=== PATIENT | female | born 1940 | race Caucasian/White ===

== ENCOUNTER 2016-05-30 11:02 | Outpatient (CLI) | payer MEDICARE | END 2016-05-30 11:03 | disposition home or self-care (01) | DX: Z12.11 Encounter for screening for malignant neoplasm of colon (principal) ==

== ENCOUNTER 2016-05-30 11:13 | Outpatient (CLI) | payer MEDICARE | END 2016-05-30 11:14 | disposition home or self-care (01) | DX: R05 Cough (principal); Z12.11 Encounter for screening for malignant neoplasm of colon ==

== ENCOUNTER 2016-09-28 11:50 | Outpatient (CLI) | payer MEDICARE ==
--- NOTE | 2016-09-28 16:35 | XRAY Report ---
TWO VIEW LEFT HAND: 09/28/2016 CLINICAL INDICATION: Finger pain. FINDINGS: AP and lateral views of the left hand demonstrate interphalangeal joint osteoarthritis. Th ere is no evidence of acute fracture or dislocation. No radiopaque foreign body is seen in the soft t issues. IMPRESSION: INTERPHALANGEAL JOINT OSTEOARTHRITIS. NO EVIDENCE OF FRACTURE. JOB #: [id number] EXT JOB #:[id number]
== END 2016-09-28 11:51 | disposition home or self-care (01) ==
LOC: DI.S 11:50
PROVIDERS: ATTEND Family Medicine
DX: M19.042 Primary osteoarthritis, left hand (principal)

== ENCOUNTER 2017-10-13 16:53 | Inpatient (IN) | payer MEDICARE ==
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
[2017-10-13 17:50] LABS: BASOPHILS % (AUTO) 0.5 %; EOSINOPHILS # (AUTO) 0.1 10^3/uL (0.0-0.7); EOSINOPHILS % (AUTO) 0.7 %; HGB - HEMOGLOBIN 13.1 g/dL (12.0-16.0); LYMPHOCYTES # (AUTO) 2.8 10^3/uL (1.5-3.5); MEAN CORPUSCULAR HGB CONC 32.6 g/dL (32.0-36.0); MEAN PLATELET VOLUME 10.4 fL (7.9-10.8); MONOCYTES # (AUTO) 0.5 10^3/uL (0.0-1.0); MONOCYTES % (AUTO) 6.4 %; NEUTROPHILS # (AUTO) 4.3 10^3/uL (1.5-6.6); NEUTROPHILS % (AUTO) 55.4 %; PLT - PLATELET COUNT 244 10^3/uL (130-450); RED BLOOD COUNT 4.36 10^6/uL (4.20-5.40); RED CELL DISTRIBUTION WIDTH 13.6 % (12.0-15.0); WHITE BLOOD COUNT 7.7 x10^3/uL (4.8-10.8)
--- NOTE | 2017-10-13 18:02 | XRAY Report ---
EXAM: CHEST RADIOGRAPHY EXAM DATE: 10/13/2017 05:32 PM. CLINICAL HISTORY: Chest pain. COMPARISON: 05/30/2016 chest x-ray. TECHNIQUE: 1 view. FINDINGS: Lungs/Pleura: No focal opacities evident. No pleural effusion. No pneumothorax. Mediastinum: Within exam limitations, the cardiomediastinal contour is normal. Other: None. IMPRESSION: Normal single view chest. [facility] Referring Provider Line: [phone] SITE ID: [id number]
--- NOTE | 2017-10-13 18:02 | XRAY Preliminary Report ---
Exam: XR CHEST 1 VIEW X-RAY IMPRESSION: Normal single view chest. [facility] SITE ID: [id number]
[2017-10-13 18:14] LABS: ALBUMIN/GLOBULIN RATIO 1.4 (1.0-2.2); BILIRUBIN,TOTAL 0.2 mg/dL (0.2-1.0); CALCIUM 9.5 mg/dL (8.5-10.3); CREATININE 0.7 mg/dL (0.4-1.0); PLATELET ESTIMATE, MANUAL NORMAL (130-450,000) (NORMAL); PLATELET MORPHOLOGY 1+ LARGE PLATELETS (NORMAL); RBC MORPHOLOGY (MULTIPLE) NORMAL APPEARANCE (NORMAL); TOTAL PROTEIN 6.8 g/dL (6.7-8.2)
[2017-10-13] MEDS ORDERED: IOPAMIDOL-300 100 ML VIAL IVP ONE (18:21)
[2017-10-13] MEDS ORDERED: IOPAMIDOL-300 100 ML VIAL ONE (18:29)
--- NOTE | 2017-10-13 19:04 | CT Preliminary Report ---
Exam: CT HEAD W/O IMPRESSION: Mild chronic senescent change. No acute intracranial abnormality seen. [facility] SITE ID: [id number]
--- NOTE | 2017-10-13 19:04 | CT Report ---
EXAM: CT HEAD EXAM DATE: 10/13/2017 06:51 PM. CLINICAL HISTORY: Ataxia. COMPARISON: None. TECHNIQUE: Multiaxial CT images were obtained from the foramen magnum to the vertex. Reformats: Coron al. IV contrast: None. In accordance with CT protocol optimization, one or more of the following dose reduction techniques w ere utilized for this exam: automated exposure control, adjustment of mA and/or KV based on patient s ize, or use of iterative reconstructive technique. FINDINGS: Parenchyma: No intraparenchymal hemorrhage. No evidence of mass, midline shift, or CT findings of inf arction. Amin-white differentiation is distinct. Mild periventricular chronic microangiopathy. Extraaxial Spaces: Normal for age. No subdural or epidural collections identified. Ventricles: Normal in size and position. Sinuses and Orbits: Imaged paranasal sinuses, orbits, and mastoids show no significant abnormality. Bones: No evidence of fracture or calvarial defect. IMPRESSION: Mild chronic senescent change. No acute intracranial abnormality seen. [facility] Referring Provider Line: [phone] SITE ID: [id number]
--- NOTE | 2017-10-13 19:21 | CT Preliminary Report ---
Exam: CT HEAD ANGIO Impression: Postcontrast head CT: No abnormal parenchymal enhancement. No masses. Head CTA: High-grade stenosis in the mid-distal right PICA, best demonstrated on series 5 image 57, clinical co rrelation with right cerebellar symptoms suggested. Finding would be better evaluated by perfusion im aging. SITE ID: [id number]
--- NOTE | 2017-10-13 19:27 | CT Preliminary Report ---
Exam: CT NECK ANGIO Impression: Allowing for motion and beam hardening artifacts, no evident extracranial arterial stenosis or dissec tion. The vertebral arteries, particularly the right are irregular, presumed atherosclerotic. SITE ID: [id number]
--- NOTE | 2017-10-13 19:48 | CT Report ---
EXAM: CTA HEAD COMPARISON: CT head, 10/15/2017. CLINICAL HISTORY: Ataxia. TECHNIQUE: Axial CT images were obtained through the head during arterial phase after intravenous Isovue-[address] is performed. 3 dimensional MIP reconstructions are created from axial data. Stenosis is measured by NASCET type criteria. In accordance with CT protocol optimization, one or more of the following dose reduction techniques w ere utilized for this exam: automated exposure control, adjustment of mA and/or KV based on patient s ize, or use of iterative reconstructive technique. FINDINGS: Postcontrast head CT: No abnormal parenchymal enhancement. No masses. Ventricles are mildly prominent, as before. Patchy white matter low attenuation is nonspecific, presumed to reflect small vessel angiopathy, as b efore. No lytic or blastic bone lesions are seen. Visualized orbits, paranasal sinuses and mastoids are unremarkable. CTA: Right internal carotid artery: No evident stenosis or aneurysm is identified through the terminus. There is extensive calcification to the siphon. Right M1, M2 and visualized distal segments are unremarkable. Right A1, A2 and visuali zed distal segments show no discrete hemodynamically significant stenosis, there is tapering 20-40% s tenosis. Left internal carotid artery: No evident stenosis or aneurysm is identified through the terminus. Left M1, M2 and visualized distal segments are unremarkable. Left A1, A2 and visualized distal segments are unremarkable. Posterior circulation: Intracranial vertebral arteries are right-sided dominant. Left PICA origin is well visualized. There is flow in the distal left PICA. Right PICA origin is well visualized. There is apparent occlusion or near occlusion in the mid distal right PICA (5, 57), would be better evaluated by perfusion imaging. There is apparent distal reconstitution. Basilar artery is relatively unremarkable to its terminus. The bilateral P1, P2 and visualized distal segments are unremarkable. IMPRESSION: Postcontrast head CT: No abnormal parenchymal enhancement. No masses. Head CTA: High-grade stenosis at the mid-distal right PICA, best demonstrated on series 5 image 57, clinical co rrelation with right cerebellar symptoms suggested. Finding would be better evaluated by perfusion im aging. Referring Provider Line: [phone] SITE ID: [id number]
--- NOTE | 2017-10-13 19:48 | CT Report ---
EXAM: CTA NECK COMPARISON: CTA head, 10/13/2017. CLINICAL HISTORY: Ataxia. TECHNIQUE: Axial CT images were obtained through the neck during arterial phase after intravenous 100 mL Isovue 300iodinated contrast. 3 dimensional MIP reconstructions are created from axial data. Stenosis is measured by NASCET type criteria. In accordance with CT protocol optimization, one or more of the following dose reduction techniques w ere utilized for this exam: automated exposure control, adjustment of mA and/or KV based on patient s ize, or use of iterative reconstructive technique. FINDINGS: Visualized right upper chest shows no pulmonary nodules or masses. No pneumothorax. Visualized left upper chest shows no pulmonary nodules or masses. No pneumothorax. There is left apic al scarring. Visualized upper mediastinum is unremarkable. No cervical adenopathy or masses are appreciated. There is multilevel cervical spondylosis, without high-grade bony canal stenosis identified. Facet ar thropathy is particularly notable at the left C3-C4. Temporomandibular joints are normally located. Zygomatic arches are intact. Mastoids are clear. No mi ddle ear effusions. No retropharyngeal fluid. Arterial structures: Right carotid artery: Right common carotid artery originates normally from the brachiocephalic, allowing for motion, it santosh ws no evident stenosis or dissection to the bifurcation. Right internal carotid artery shows no evide nt stenosis or dissection to the skull base. Left carotid artery: Left common carotid artery originates normally from the aortic arch, it shows no evident stenosis or dissection to the bifurcation. Left internal carotid artery shows no evident stenosis or dissection t o the skull base. Posterior circulation: Right vertebral artery originates normally from the right subclavian artery, it is irregular over its length, no definite focal stenosis or dissection is identified. Left vertebral artery originates normally from the left subclavian artery, it shows no definite steno sis or dissection over its length, it is nondominant. IMPRESSION: Allowing for motion and beam-hardening artifacts, no evident extracranial arterial stenosis or dissec tion. The vertebral arteries, particularly the right are irregular, presumed atherosclerotic. Referring Provider Line: [phone] SITE ID: [id number]
[2017-10-13] MEDS ORDERED: SODIUM CHLORIDE FLUSH 0.9% 10 ML SYRINGE IVP PRN (20:40)
[2017-10-13] MEDS ORDERED: TEMAZEPAM 15 MG CAPSULE PO PRN (20:40)
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
[2017-10-13] MEDS: D5.45NS W/20 MEQ KCL 1,000 ML IV SCH (22:22)
[2017-10-14] MEDS: SODIUM CHLORIDE FLUSH 0.9% 10 ML SYRINGE IVP SCH ×4 (00:14→23:44)
[2017-10-14] MEDS: D5.45NS W/20 MEQ KCL 1,000 ML IV SCH (08:16)
[2017-10-14] MEDS ORDERED: ASPIRIN 325 MG TABLET PO SCH (09:00)
[2017-10-14] MEDS: ASPIRIN 325 MG TABLET PO SCH (09:20)
[2017-10-14] MEDS: ATORVASTATIN 40 MG TABLET PO SCH ×2 (09:20→21:59)
[2017-10-14] MEDS: POLYETHYLENE GLYCOL 3350 17 GM PACKET PO SCH (09:21)
--- NOTE | 2017-10-14 12:55 | PROVIDER PROGRESS NOTE ---
Subjective - Prog Note Date Prog Note Date: 10/14/17 - Subjective Pt reports feeling: Improved Subjective: pt report she feel better, and balance also is better, and ataxia is better. Pt state " I usually can treat myself by my imagination." Pt denies other complaints. pt did report she had hx of Crohn's disease and osteoarthritis. she state all these problems are good controlled, and treated by herself. Current Medications - Current Medications Current Medications: Active Medications Acetaminophen/Hydrocodone Bitart ([place] 5/325) 1 tab PO Q4HR PRN PRN Reason: Pain 5 to 7 Aspirin (Garry) 325 mg PO DAILYWM [facility] Last Admin: 10/14/17 09:20 Dose: 325 mg Atorvastatin Calcium (Lipitor) 80 mg PO QPM [facility] Last Admin: 10/14/17 09:20 Dose: 80 mg Potassium Chloride/Dextrose/Sod Cl (D5.45ns W/20 Meq Kcl) 1,000 mls @ 50 mls/ hr IV .Q20H [facility] Last Admin: 10/14/17 08:16 Dose: 50 mls/hr Polyethylene Glycol (Miralax) 17 gm PO DAILY [facility] Last Admin: 10/14/17 09:21 Dose: Not Given Sodium Chloride (Normal Saline Flush 0.9%) 10 ml IVP PRN PRN PRN Reason: NEEDED PER PROVIDER ORDERS Sodium Chloride (Normal Saline Flush 0.9%) 10 ml IVP 0100,0900,1700 [facility] Last Admin: 10/14/17 09:21 Dose: Not Given Temazepam (Restoril) 15 mg PO QPM PRN PRN Reason: Insomnia Objective - Vital Signs/Intake & Output Reviewed Vital Signs: Yes Vital Signs: Vital Signs x48h Temp Pulse Resp BP BP Pulse Ox 10/14/17 12:41 36.3 C L 57 L 16 155/70 H 99 10/14/17 09:01 36.6 C 66 18 123/57 L 100 10/14/17 05:25 36.9 C 61 16 146/84 H 100 Intake & Output: Intake & Output 10/11/17 10/12/17 10/13/17 10/14/17 23:59 23:59 23:59 23:59 Intake Total 200 985 Balance 200 985 - Objective General Appearance: positive: No acute distress, Alert. negative: Lethargic Eyes Bilateral: positive: Normal inspection, PERRL, No lid inflammation, Conjunctivae nml ENT: positive: ENT inspection nml, Pharynx nml, No signs of dehydration. negative: Purulent nasal drainage, Pharyngeal erythema, Oral lesions Neck: positive: Nml inspection, Thyroid nml, No JVD, Trachea midline. negative : Thyromegaly, Lymphadenopathy (R), Lymphadenopathy (L), Stiff neck, Carotid bruit, Swelling/bruising, Tracheal deviation Respiratory: positive: Chest non-tender, No respiratory distress, Breath sounds nml. negative: Wheezes, Rales, Rhonchi Cardiovascular: positive: Regular rate & rhythm, No murmur, No gallop. negative : Irregularly irregular, Extrasystoles, Tachycardia, Bradycardia, JVD present, Systolic murmur, Diastolic murmur Peripheral Pulses: 2+ Radial (R), 2+ Radial (L), 2+ Dorsalis pedis (R), 2+ Dorsalis pedis (L) Abdomen: positive: Non-tender, No organomegaly, Nml bowel sounds, No distention. negative: Tenderness, Guarding, Rebound Back: positive: Nml inspection. negative: CVA tenderness (R), CVA tenderness (L ) Skin: positive: Color nml, No rash, Warm, Dry. negative: Cyanosis, Diaphoresis , Pallor Extremities: positive: Non-tender. negative: Calf tenderness, Joint swelling, Meka's sign/cords Neurologic/Psychiatric: positive: Oriented x3, Sensation nml, Mood/affect nml. negative: Weakness, Sensory loss, Facial droop, Slurred/abnml speech, Depressed mood/affect - Lab Results Fish Bones: 10/13/17 17:20 10/13/17 17:20 ABX Reporting Has patient been on IV antibiotics over the past 48 hours?: No Assessment/Plan - Problem List (1) Cerebellar stroke Impression: (1) Cerebellar stroke Conclusion/Plan: MRI will have tomorrow, will follow up. ECHO is unremarkable. add aspirin 325 mg Lipitor 80 mg order lipid panel study PT/OT The patient apparently has a stroke in her right pica region or cerebellum. She is not exhibiting any kind of dysarthria or difficulty speaking. She is severely ataxic however and will require assistance with any type of activity. We will admit the patient to a medical surgical bed on telemetry,obtain an MRI/ MRA of the patient's brain and neck, an echocardiogram, and will address any abnormalities as they are 0discovered. (2) unbalance/ataxia pt present some mild unbalance, mild ataxia issue when watch pt walk with PT continue PT/OT, will follow up recommendation for d/c plan fall precaution continue medical treatment.
[2017-10-15] MEDS: D5.45NS W/20 MEQ KCL 1,000 ML IV SCH (05:32)
[2017-10-15 06:34] LABS: BASOPHILS % (AUTO) 0.5 %; EOSINOPHILS # (AUTO) 0.1 10^3/uL (0.0-0.7); EOSINOPHILS % (AUTO) 1.4 %; LYMPHOCYTES % (AUTO) 45.8 %; MEAN CORPUSCULAR HGB CONC 33.1 g/dL (32.0-36.0); MEAN CORPUSCULAR VOLUME 90.7 fL (81.0-99.0); MEAN PLATELET VOLUME 10.3 fL (7.9-10.8); MONOCYTES # (AUTO) 0.5 10^3/uL (0.0-1.0); MONOCYTES % (AUTO) 7.7 %; NEUTROPHILS % (AUTO) 44.6 %; PLT - PLATELET COUNT 222 10^3/uL (130-450); RED BLOOD COUNT 4.32 10^6/uL (4.20-5.40); RED CELL DISTRIBUTION WIDTH 13.9 % (12.0-15.0); WHITE BLOOD COUNT 6.7 x10^3/uL (4.8-10.8)
[2017-10-15 06:46] LABS: ALBUMIN 3.5 g/dL (3.2-5.5); ALBUMIN/GLOBULIN RATIO 1.3 (1.0-2.2); BILIRUBIN,TOTAL 0.8 mg/dL (0.2-1.0); CALCIUM 9.1 mg/dL (8.5-10.3); CREATININE 0.7 mg/dL (0.4-1.0); MAGNESIUM 1.9 mg/dL (1.7-2.8); TOTAL PROTEIN 6.2 g/dL (6.7-8.2)
[2017-10-15 06:52] LABS: CHOL/HDL RATIO 3.2 (<4.4); CHOLESTEROL 192 mg/dL; HDL CHOLESTEROL 60 mg/dL; LDL CHOLESTEROL,CALCULATED 100 mg/dL; LDL/HDL RATIO 1.7 (<4.4); VLDL CHOLESTEROL 32 mg/dL
[2017-10-15 07:04] LABS: PLATELET ESTIMATE, MANUAL NORMAL (130-450,000) (NORMAL); PLATELET MORPHOLOGY RARE GIANT PLATELETS (NORMAL); RBC MORPHOLOGY (MULTIPLE) NORMAL APPEARANCE (NORMAL)
[2017-10-15] MEDS: ASPIRIN 325 MG TABLET PO SCH (08:53)
[2017-10-15] MEDS: POLYETHYLENE GLYCOL 3350 17 GM PACKET PO SCH (08:53)
[2017-10-15] MEDS: SODIUM CHLORIDE FLUSH 0.9% 10 ML SYRINGE IVP SCH ×2 (08:53→20:07)
--- NOTE | 2017-10-15 14:18 | PROVIDER PROGRESS NOTE ---
Subjective - Prog Note Date Prog Note Date: 10/15/17 - Subjective Pt reports feeling: Improved Subjective: pt report she feel good. Denies fever, chill, cough, CP, SOB. PT report pt did good job, and recommend out-pt PT/OT for pt. Today hospital did not have MRI for pt. Current Medications - Current Medications Current Medications: Active Medications Acetaminophen/Hydrocodone Bitart ([place] 5/325) 1 tab PO Q4HR PRN PRN Reason: Pain 5 to 7 Aspirin (Garry) 325 mg PO DAILYWM [facility] Last Admin: 10/15/17 08:53 Dose: 325 mg Atorvastatin Calcium (Lipitor) 80 mg PO QPM [facility] Last Admin: 10/14/17 21:59 Dose: 80 mg Polyethylene Glycol (Miralax) 17 gm PO DAILY [facility] Last Admin: 10/15/17 08:53 Dose: Not Given Sodium Chloride (Normal Saline Flush 0.9%) 10 ml IVP PRN PRN PRN Reason: NEEDED PER PROVIDER ORDERS Sodium Chloride (Normal Saline Flush 0.9%) 10 ml IVP 0100,0900,1700 [facility] Last Admin: 10/15/17 08:53 Dose: Not Given Temazepam (Restoril) 15 mg PO QPM PRN PRN Reason: Insomnia Objective - Vital Signs/Intake & Output Reviewed Vital Signs: Yes Vital Signs: Vital Signs x48h Temp Pulse Resp BP BP Pulse Ox 10/15/17 12:26 36.5 C 60 22 164/74 H 98 10/15/17 08:00 36.6 C 62 18 146/69 H 96 Intake & Output: Intake & Output 10/12/17 10/13/17 10/14/17 10/15/17 23:59 23:59 23:59 23:59 Intake Total 200 1722 1967.5 Balance 200 1722 1967.5 - Objective General Appearance: positive: No acute distress, Alert. negative: Lethargic Eyes Bilateral: positive: Normal inspection, PERRL, EOMI, No lid inflammation, Conjunctivae nml ENT: positive: ENT inspection nml, Pharynx nml, No signs of dehydration. negative: Purulent nasal drainage, Pharyngeal erythema, Oral lesions Neck: positive: Nml inspection, Thyroid nml, No JVD, Trachea midline. negative : Thyromegaly, Lymphadenopathy (R), Lymphadenopathy (L), Stiff neck, Carotid bruit, Swelling/bruising, Tracheal deviation Respiratory: positive: Chest non-tender, No respiratory distress, Breath sounds nml. negative: Wheezes, Rales, Rhonchi Cardiovascular: positive: Regular rate & rhythm, No murmur, No gallop. negative : Irregularly irregular, Extrasystoles, Tachycardia, Bradycardia, JVD present, Systolic murmur, Diastolic murmur Peripheral Pulses: 2+ Radial (R), 2+ Radial (L), 2+ Dorsalis pedis (R), 2+ Dorsalis pedis (L) Abdomen: positive: Non-tender, No organomegaly, Nml bowel sounds, No distention. negative: Tenderness, Guarding, Rebound Back: positive: Nml inspection. negative: CVA tenderness (R), CVA tenderness (L ) Skin: positive: Color nml, No rash, Warm, Dry. negative: Cyanosis, Diaphoresis , Pallor Extremities: positive: Non-tender, Full ROM, Nml appearance. negative: Calf tenderness, Joint swelling, Meka's sign/cords Neurologic/Psychiatric: positive: Oriented x3, Motor nml, Sensation nml, Mood/ affect nml. negative: Weakness, Sensory loss, Facial droop, Slurred/abnml speech, Depressed mood/affect - Lab Results Fish Bones: 10/15/17 06:02 10/15/17 06:02 Other Labs: Lab Results x24hrs 10/15/17 10/15/17 10/15/17 Range/Units 06:02 06:02 06:02 WBC 6.7 (4.8-10.8) x10^3/uL RBC 4.32 (4.20-5.40) 10^6/uL Hgb 13.0 (12.0-16.0) g/dL Hct 39.2 (37.0-47.0) % MCV 90.7 (81.0-99.0) fL MCH 30.0 (27.0-31.0) pg MCHC 33.1 (32.0-36.0) g/dL RDW 13.9 (12.0-15.0) % Plt Count 222 (130-450) 10^3/uL MPV 10.3 (7.9-10.8) fL Neut # 3.0 (1.5-6.6) 10^3/uL Lymph # 3.0 (1.5-3.5) 10^3/uL [place] # 0.5 (0.0-1.0) 10^3/uL Eos # 0.1 (0.0-0.7) 10^3/uL Baso # 0.0 (0.0-0.1) 10^3/uL Absolute Nucleated RBC 0.00 x10^3/uL Nucleated RBC % 0.0 /100WBC Manual Slide Review Indicated Platelet Estimate NORMAL (130-450,000) (NORMAL) Platelet Morphology RARE GIANT PLATELETS (NORMAL) RBC Morph Micro Appear NORMAL APPEARANCE (NORMAL) Sodium 138 (135-145) mmol/L Potassium 4.0 (3.5-5.0) mmol/L Chloride 103 (101-111) mmol/L Carbon Dioxide 27 (21-32) mmol/L Anion Gap 8.0 (6-13) BUN 16 (6-20) mg/dL Creatinine 0.7 (0.4-1.0) mg/dL Estimated GFR (MDRD) 81 L (>89) Glucose 95 (70-100) mg/dL Calcium 9.1 (8.5-10.3) mg/dL Magnesium 1.9 (1.7-2.8) mg/dL Total Bilirubin 0.8 (0.2-1.0) mg/dL AST 18 (10-42) IU/L ALT 14 (10-60) IU/L Alkaline Phosphatase 64 (42-121) IU/L Total Protein 6.2 L (6.7-8.2) g/dL Albumin 3.5 (3.2-5.5) g/dL Globulin 2.7 (2.1-4.2) g/dL Albumin/Globulin Ratio 1.3 (1.0-2.2) Triglycerides 160 H ( - 149) mg/dL Cholesterol 192 ( - 199) mg/dL LDL Cholesterol, Calc 100 ( - 129) mg/dL VLDL Cholesterol 32 mg/dL HDL Cholesterol 60 (60 - ) mg/dL LDL/HDL Ratio 1.7 (<4.4) Cholesterol/HDL Ratio 3.2 (<4.4) ABX Reporting Has patient been on IV antibiotics over the past 48 hours?: No Assessment/Plan - Problem List (1) Cerebellar stroke Impression: Conclusion/Plan: hospital does not have MRI today again, is pending. continue PT/OT, pt did good job with PT/OT, and recommended as out-pt on d/c continue medical treatment aspirin and lipitor MRI will have tomorrow, will follow up. ECHO is unremarkable. add aspirin 325 mg Lipitor 80 mg order lipid panel study PT/OT The patient apparently has a stroke in her right pica region or cerebellum. She is not exhibiting any kind of dysarthria or difficulty speaking. She is severely ataxic however and will require assistance with any type of activity. We will admit the patient to a medical surgical bed on telemetry,obtain an MRI/ MRA of the patient's brain and neck, an echocardiogram, and will address any abnormalities as they are 0discovered. (2) unbalance/ataxia It seems great improved when I saw pt walk and activate with PT continue PT/OT MRI is pending on tomorrow pt present some mild unbalance, mild ataxia issue when watch pt walk with PT continue PT/OT, will follow up recommendation for d/c plan fall precaution continue medical treatment.
[2017-10-15] MEDS: ATORVASTATIN 40 MG TABLET PO SCH (20:07)
[2017-10-15] MEDS: HYDROcod/ACETAM 5/325 MG TABLET PO PRN (22:30)
[2017-10-16] MEDS: SODIUM CHLORIDE FLUSH 0.9% 10 ML SYRINGE IVP SCH ×2 (02:38→09:23)
[2017-10-16] MEDS: HYDROcod/ACETAM 5/325 MG TABLET PO PRN (03:22)
[2017-10-16 06:17] LABS: BASOPHILS % (AUTO) 0.5 %; EOSINOPHILS # (AUTO) 0.1 10^3/uL (0.0-0.7); EOSINOPHILS % (AUTO) 1.3 %; LYMPHOCYTES # (AUTO) 3.1 10^3/uL (1.5-3.5); LYMPHOCYTES % (AUTO) 47.4 %; MEAN CORPUSCULAR HEMOGLOBIN 29.6 pg (27.0-31.0); MEAN CORPUSCULAR HGB CONC 32.4 g/dL (32.0-36.0); MEAN CORPUSCULAR VOLUME 91.2 fL (81.0-99.0); MEAN PLATELET VOLUME 9.4 fL (7.9-10.8); MONOCYTES # (AUTO) 0.5 10^3/uL (0.0-1.0); MONOCYTES % (AUTO) 7.2 %; NEUTROPHILS # (AUTO) 2.8 10^3/uL (1.5-6.6); NEUTROPHILS % (AUTO) 43.6 %; PLT - PLATELET COUNT 214 10^3/uL (130-450); RED BLOOD COUNT 4.38 10^6/uL (4.20-5.40); RED CELL DISTRIBUTION WIDTH 13.6 % (12.0-15.0); WHITE BLOOD COUNT 6.5 x10^3/uL (4.8-10.8)
[2017-10-16 06:30] LABS: ALBUMIN 3.6 g/dL (3.2-5.5); ALBUMIN/GLOBULIN RATIO 1.3 (1.0-2.2); BILIRUBIN,TOTAL 0.7 mg/dL (0.2-1.0); CALCIUM 9.1 mg/dL (8.5-10.3); CREATININE 0.7 mg/dL (0.4-1.0); TOTAL PROTEIN 6.3 g/dL (6.7-8.2)
--- NOTE | 2017-10-16 07:04 | ADVANCE CARE PLANNING NOTE ---
Advance Care Planning - Date/Time Date: 10/14/17 Time: 22:00 - Purpose of encounter Text: I had a long discussion with the patient on admission regarding wishes and goals of care and in this discussion the patient decided that she wished to be placed to DNR status and wished to fill out a POLST form. We accomplished this shortly after her admission and the patient is now DNR status. - Parties in attendance Parties in attendance: Wendy Joyce, Tash Ovalle, - Decisional capacity Decisional capacity of: Pt has full decision making capacity at this time. - Objective/Medical story Objective/Medical Story: The patient has sustained a cerebellar stroke, and commented several times during admission, "I have lived a good life and outlived 2 husbands. Ready whenever my time comes." - Plan Plan: The plan is to give the patient physical therapy and to transfer her home when she is capable. - Code Status Code Status: Do Not Attempt Resuscitation - Time Spent on Advance Care Planning Time spent on advance care plannin minutes
[2017-10-16] MEDS ORDERED: GADOBUTROL 7.5 MMOL/7.5 ML VIAL ONE (09:00)
[2017-10-16] MEDS: POLYETHYLENE GLYCOL 3350 17 GM PACKET PO SCH (09:16)
[2017-10-16] MEDS: ASPIRIN 325 MG TABLET PO SCH (09:22)
[2017-10-16] MEDS ORDERED: GADOBUTROL 7.5 MMOL/7.5 ML VIAL IVP ONE (11:33)
--- NOTE | 2017-10-16 12:55 | MRI Preliminary Report ---
Exam: MRI BRAIN W/WO Impression: 1. A mild amount of white matter disease is identified as described. The findings are relatively nons pecific, however, this most likely represents chronic microangiopathy. 2. Small, pineal region arachnoid cyst as described. This finding is of doubtful clinical significanc e. 3. No other significant intracranial pathology is demonstrated. In particular, no evidence of cerebel lar or other infarction. SITE ID: [id number]
--- NOTE | 2017-10-16 13:07 | MRI Preliminary Report ---
Exam: MRI ANGIO BRAIN W/O (MRA) IMPRESSION: 1. 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 2. Otherwise unremarkable MR angiogram of the intracranial circulation. [facility] SITE ID: [id number]
--- NOTE | 2017-10-16 13:18 | MRI Report ---
EXAM MRA BRAIN EXAM DATE: 10/16/2017 11:03 AM. CLINICAL HISTORY: Right PICA infarct on CT. COMPARISON: MRI of the brain 10/16/2017. CT scan and CT angiogram of the head 10/13/2017. TECHNIQUE: Multiplanar, multisequence MRA sequences of the brain were performed. Other: None. Post-pr ocessing: Multiplanar 3D MIP reconstructions. IV Contrast: None. FINDINGS: RIGHT Internal Carotid (ICA): No aneurysm, stenosis or anomaly. Middle Cerebral (MCA): No aneurysm, stenosis or anomaly. Anterior Cerebral (TAMAR): No aneurysm, stenosis or anomaly. Posterior Cerebral ([employer]): No aneurysm, stenosis or anomaly. Posterior Communicating (P-COM): Not visualized. Vertebral: No aneurysm, stenosis or anomaly in the visualized upper vertebral artery. The PICA arises from the mid V4 segment. Moderate to severe stenosis is seen in the mid PICA. Distal to this the PIC A is unremarkable. LEFT Internal Carotid (ICA): No aneurysm, stenosis or anomaly. Middle Cerebral (MCA): No aneurysm, stenosis or anomaly. Anterior Cerebral (TAMAR): No aneurysm, stenosis or anomaly. Posterior Cerebral ([employer]): No aneurysm, stenosis or anomaly. Posterior Communicating (P-COM): Small in caliber. Vertebral: No aneurysm, stenosis or anomaly in the visualized upper vertebral artery. The PICA arises from the mid V4 segment and is unremarkable. MIDLINE Anterior Communicating (A-COM): Small in caliber. Basilar Artery:No aneurysm, stenosis or anomaly. Other: None. IMPRESSION: 1. 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 2. Otherwise unremarkable MR angiogram of the intracranial circulation. [facility] Referring Provider Line: [phone] SITE ID: [id number]
--- NOTE | 2017-10-16 13:32 | MRI Report ---
MRI BRAIN WITHOUT AND WITH CONTRAST INDICATION: 77-year-old female with ataxia. CT angiogram demonstrates severe stenosis in the right PI CA. Concern for possible cerebellar infarction. TECHNIQUE: 1. Sagittal T1 and coronal fat saturated T2. 2. Axial T1 3-D MP RAGE, FLAIR, T2, T2*, and DWI. 3. 6.5 mL IV Gadavist. T1 3-D MP RAGE axial. COMPARISON: Head CT 10/13/2017 FINDINGS: There is mild generalized prominence of the cerebral cortical sulci and mild ex vacuo enlargement of the third and lateral ventricles. These findings are considered within normal limits for stated age. No hydrocephalus. A mild amount of white matter disease is identified in the supratentorial brain, manifested as focal and confluent T2 hyperintensities that are scattered throughout the periventricular, deep and subcort ical white matter bilaterally. A frontoparietal distribution predominates. Signal intensity of cortex and white matter is otherwise normal. No cerebellar lesion is identified. There appear to be flow voids for the main intracranial arteries. No abnormal diffusion restriction i s demonstrated. No evidence of acute or chronic hemorrhage on T2* GRE sequence. There is a roughly 13 mm AP by 8.5 mm transverse by 7 mm craniocaudad, CSF signal intensity fluid col lection, in the pineal region, paracentrally to the right, most consistent with an arachnoid cyst. It causes some mild mass effect on the internal cerebral veins, which are displaced towards the left. T he clinical significance of this pineal region arachnoid cyst is doubtful. No other abnormal extra-ax ial fluid collection is demonstrated. No enhancing space-occupying mass is identified. No pathologic meningeal or cranial nerve enhancement is demonstrated. There appears be normal intravascular contrast enhancement in the dural venous sinu ses and deep venous structures. Limited assessment of the orbits reveals no gross pathology. There is mild mucosal thickening in a few ethmoid air cells. The paranasal sinuses are otherwise lyubov r. No mastoid or middle ear effusion. IMPRESSION: 1. A mild amount of white matter disease is identified as described. The findings are relatively nons pecific; however, this most likely represents chronic microangiopathy. 2. 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 This finding is of doubtful clinical significance . 3. No other significant intracranial pathology is demonstrated. In particular, no evidence of cerebel lar or other infarction. Referring Provider Line: [phone] SITE ID: [id number]
[2017-10-16 13:34] VITALS: BP 112/56
--- NOTE | 2017-10-16 13:40 | Discharge Plan ---
Discharge Plan Disposition: 01 Home, Self Care Condition: Stable Prescriptions: Aspirin [Garry] 81 mg PO DAILYWM #15 tablet Atorvastatin [Lipitor] 40 mg PO QPM #15 tablet Diet: Regular Activity Restrictions: Activity as Tolerated Shower Restrictions: No (caregiver closely monitor, fall precaution) Weight Bearing: Full Weight Instruction Topics: Atorvastatin tablets, Aspirin capsules or tablets extended release, Falls Preventing, Stroke Prevent Healthy Lifestyle Additional Instructions or Follow Up instructions: You may follow up your PCP in 1-2 weeks. MRI of your brain reveals no evidence of cerebellar or other infarction. MRI angio brain reveals moderate to severe stenosis in the middle right PICA, posterior inferior cerebellar artery. The [place] neurologist was consulted and recommended this is not in a spot that would be amendable to stenting or intervention. Should your symptoms return or worsen, you may present ER or call 911 for help. Follow-Up Care: Outpatient Rehab - PT, Outpatient Rehab - OT No Smoking: If you smoke, Please STOP! Call for help. Follow-up with: Thiago Yates MD [Provider Admit Priv/Credential] -
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
== END 2017-10-16 14:48 | disposition home or self-care (01) | DRG 66 ==
LOC: ED 16:53 → MS2 20:10
PROVIDERS: ADMIT Hospitalist; ATTEND Nurse Practitioner Gerontology
DX: I63.9 Cerebral infarction, unspecified (principal); I63.531 Cerebral infarction due to unspecified occlusion or stenosis of right posterior cerebral artery; R27.0 Ataxia, unspecified; Z66 Do not resuscitate
CPT/HCPCS: 36415; 70450; 70496; 70498; 70544; 70553; 71045; 80053; 80061; 82672; 83690; 83721; 83735; 84484; 85025; 93005; 93306; 99283; 99284; 99285

== ENCOUNTER 2017-11-13 10:48 | Outpatient (CLI) | payer MEDICARE ==
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
== END 2017-11-13 10:49 | disposition home or self-care (01) ==
LOC: DI.S 10:48
PROVIDERS: ATTEND Nurse Practitioner Family
DX: S03.01XA Dislocation of jaw, right side, initial encounter (principal)

== ENCOUNTER 2018-03-20 08:50 | Outpatient (CLI) | payer MEDICARE ==
[2018-03-20 18:27] LABS: ALBUMIN 3.9 g/dL (3.2-5.5); ALBUMIN/GLOBULIN RATIO 1.3 (1.0-2.2); ALKALINE PHOSPHATASE 71 IU/L (42-121); ALT ALANINE AMINOTRANSFERASE 18 IU/L (10-60); AST ASPARTATE AMINOTRANSFERASE 17 IU/L (10-42); BILIRUBIN,TOTAL 0.7 mg/dL (0.2-1.0); BUN - BLOOD UREA NITROGEN 11 mg/dL (6-20); CALCIUM 9.1 mg/dL (8.5-10.3); CARBON DIOXIDE - CO2 29 mmol/L (21-32); CHLORIDE 102 mmol/L (101-111); CHOL/HDL RATIO 3.4 (<4.4); CHOLESTEROL 225 mg/dL; CREATININE 0.6 mg/dL (0.4-1.0); GFR - MDRD 97 (>89); GLUCOSE 82 mg/dL (70-100); HDL CHOLESTEROL 67 mg/dL; LDL CHOLESTEROL,CALCULATED 121 mg/dL; LDL/HDL RATIO 1.8 (<4.4); SODIUM 138 mmol/L (135-145); TOTAL PROTEIN 6.8 g/dL (6.7-8.2); VLDL CHOLESTEROL 37 mg/dL
== END 2018-03-20 08:51 | disposition home or self-care (01) ==
LOC: LAB.F 08:50
PROVIDERS: ATTEND Nurse Practitioner Family
DX: I10 Essential (primary) hypertension (principal); E78.5 Hyperlipidemia, unspecified; Z13.29 Encounter for screening for other suspected endocrine disorder
CPT/HCPCS: 36415; 80053; 80061; 83721; 84443

== ENCOUNTER 2022-08-07 07:00 | Outpatient (CLI) | payer MEDICARE | END 2022-08-07 23:59 | disposition home or self-care (01) | LOC: LAB.S 07:00 | PROVIDERS: ATTEND Physician Assistant Medical | DX: N30.01 Acute cystitis with hematuria (principal) | CPT/HCPCS: 87086 ==

== ENCOUNTER 2023-10-04 08:01 | Outpatient (CLI) | payer MEDICARE ==
[2023-10-04 15:44] LABS: ALT ALANINE AMINOTRANSFERASE 11 IU/L (10-60); AST ASPARTATE AMINOTRANSFERASE 15 IU/L (10-42); BUN - BLOOD UREA NITROGEN 17 mg/dL (6-20); CALCIUM 9.5 mg/dL (8.5-10.3); CARBON DIOXIDE - CO2 29 mmol/L (21-32); CHLORIDE 100 mmol/L (101-111); CHOL/HDL RATIO 2.7 (<4.4); CHOLESTEROL 209 mg/dL; CK- CREATINE KINASE 55 IU/L (30-223); CREATININE 0.6 mg/dL (0.6-1.3); GFR - MDRD 95 (>89); GLUCOSE 80 mg/dL (74-104); HDL CHOLESTEROL 77 mg/dL; LDL CHOLESTEROL,CALCULATED 109 mg/dL; LDL CHOLESTEROL,DIRECT 110 mg/dL (75-193); LDL/HDL RATIO 1.4 (<4.4); SODIUM 135 mmol/L (135-145); TRIGLYCERIDES 116 mg/dL (48-352); VLDL CHOLESTEROL 23 mg/dL
== END 2023-10-04 08:02 | disposition home or self-care (01) ==
LOC: LAB.S 08:01
PROVIDERS: ATTEND Internal Medicine Cardiovascular Disease
DX: I10 Essential (primary) hypertension (principal); R42 Dizziness and giddiness; E78.5 Hyperlipidemia, unspecified
CPT/HCPCS: 36415; 80048; 80061; 82550; 83721; 84450; 84460

== ENCOUNTER 2023-10-21 10:22 | Emergency (ER) | payer MEDICARE ==
[2023-10-21 10:48] VITALS: O2SAT 97
--- NOTE | 2023-10-21 11:22 | ED Physician Documentation ---
PD HPI WOUND RECHECK - Stated complaint Stated Complaint: RT CALF INJURY - Chief complaint Chief Complaint: Wound - Histroy obtained from History obtained from: Patient - Additional information Additional information: She sustained a through and through puncture wound from a garden fork on 14 October. The next day she went to urgent care and was started on Keflex. That said she still has increasing pain and redness. She is up-to-date on tetanus. PD PAST MEDICAL HISTORY - Past Medical History Past Medical History: Yes Cardiovascular: None Respiratory: None Neuro: TIA Endocrine/Autoimmune: None GI: None SHEET SEWER: None : None HEENT: None Psych: None Musculoskeletal: None Derm: None - Past Surgical History Past Surgical History: Yes General: Appendectomy - Present Medications Home Medications: Ambulatory Orders Medication Instructions Recorded Confirmed Sulfamethox/Trimeth 800/160 1 each PO BID #14 tablet 10/21/23 [Bactrim Ds 800/160] cephALEXin [Keflex] 500 mg PO QID 10/21/23 10/21/23 - Allergies Allergies/Adverse Reactions: Allergies Allergy/AdvReac Type Severity Reaction Status Date / Time No Known Drug Allergies Allergy Verified 10/21/23 10:44 - Social History Does the pt smoke?: No Smoking Status: Never smoker Does the pt drink ETOH?: Yes Does the pt have substance abuse?: No - Immunizations Immunizations are current?: Yes - POLST Patient has POLST: Yes POLST Status: DNR PD ED PE NORMAL - Vitals Vital signs reviewed: Yes - General General: Alert and oriented X 3, No acute distress - Extremities Extremities: Other (There is a scab a little bigger than a dime to the medial right calf with about 3 cm of surrounding cellulitis. There is another puncture wound that was the exit wound on the posterolateral calf. Passive range of motion of the calf itself is painless. Bedside ultrasound demonstrates no fluid yoni) - Neuro Neuro: Alert and oriented X 3 Results - Vitals Vitals: Vital Signs - 24 hr 10/21/23 10/21/23 10:40 10:57 Temperature 36.4 C L Heart Rate 73 63 Respiratory 16 18 Rate Blood Pressure 172/76 H 140/104 H O2 Saturation 97 97 Oxygen O2 Source [Without Activity] Room air O2 Source Room air PD Medical Decision Making - ED course ED course: She has a through and through puncture wound from a dirty garden implement to the right calf. At this point she is slightly worse on Keflex but there is no sign of an abscess or necrotizing infection. We will start Bactrim. There is nothing to culture. Discussed with her that despite management with antibiotics she may progress to needing an incision and drainage. I do not think she is at that point yet but advised to recheck in 2 days if not improved. Departure - Departure Disposition: 01 Home, Self Care Clinical Impression: Infected puncture wound Condition: Good Record reviewed to determine appropriate education?: Yes Instructions: ED Staph Infec Abx Tx Only Prescriptions: Sulfamethox/Trimeth 800/160 [Bactrim Ds 800/160] 1 each PO BID #14 tablet Comments: I sent the prescription electronically to the [facility] in [place]. As discussed, I do not think you are at the point where you need an incision and drainage (a surgical procedure) at this point. That said if you do not improve over the next 48 hours or so or if you were to worsen, please return for reevaluation. You can continue the cephalexin antibiotic that Dr. Bryant prescribed in addition to the new antibiotic.
[2023-10-21 11:36] VITALS: BP 148/75
== END 2023-10-21 11:28 | disposition home or self-care (01) ==
LOC: ED 10:22
DX: S81.831A Puncture wound without foreign body, right lower leg, initial encounter (principal); L03.115 Cellulitis of right lower limb; W27.4XXA Contact with kitchen utensil, initial encounter; Y93.H2 Activity, gardening and landscaping; Z86.73 Personal history of transient ischemic attack (TIA), and cerebral infarction without residual deficits
CPT/HCPCS: 99282; 99284